=== PATIENT | female | born 1945 | race Caucasian/White ===

== ENCOUNTER → 2016-10-22 | Outpatient (CLI) | payer OTHER ==
[~2016-10-22] MED LIST: ALBU1AER9 INH; ASPI81TA25 PO; B-COTAB18 PO; CLB200 PO; CLTP PO; CRDCD300 PO; FLUO20CA37 PO; HYDC25 PO; LISI40TA PO; LORA-741 PO; METF-384 PO; MONT1TAB3 PO; MULTTAB PO; NAPR1TAB9 PO; RANI150T3 PO; ROSU5TAB PO; RXC5 PO; SYN100 PO
[2016-10-22 10:18] LABS: ESTIMATED AVERAGE GLUCOSE 148 mg/dl; HA1C FLAG Normal (Normal)
[2016-10-22 12:53] LABS: ALT/SGPT 24 U/L (12-78); BLOOD UREA NITROGEN 15 mg/dl (7-18); BUN/CREATININE RATIO 13.8 (10-20); CARBON DIOXIDE 21 mmol/L (21-32); CHLORIDE 106 mmol/L (98-107); CHOLESTEROL 106 mg/dl (0-200); GLUCOSE 133 mg/dl (70-99); POTASSIUM 4.2 mmol/L (3.5-5.1); SODIUM 138 mmol/L (136-145); TRIGLYCERIDES 120 mg/dl (0-150); VERY LOW DENSITY LIPOPROT CALC 24 mg/dl
[2016-10-22 12:56] LABS: CALCIUM 9.7 mg/dl (8.5-10.1)
[2016-10-22 13:04] LABS: ALB/GLOB RATIO 1.4 (0.9-2); ALKALINE PHOSPHATASE 112 U/L (45-117); AST/SGOT 17 U/L (15-37); CHOLESTEROL/HDL RATIO 1.9; HDL CHOLESTEROL 56 mg/dl; LDL CHOLESTEROL CALCULATED 26 mg/dl; THYROID STIMULATING HORMONE 0.567 uIu/ml (0.300-4.500)
== END | disposition home or self-care (01) ==
LOC: C.LAB1850 08:56
PROVIDERS: ATTEND Nurse Practitioner
DX: Z11.59 Encounter for screening for other viral diseases (principal); E78.5 Hyperlipidemia, unspecified; E03.9 Hypothyroidism, unspecified; E11.9 Type 2 diabetes mellitus without complications

== ENCOUNTER → 2017-03-12 | Outpatient (CLI) | payer OTHER ==
[~2017-03-12] MED LIST changes: -RXC5 PO
== END | disposition home or self-care (01) ==
LOC: C.CTS 09:15
PROVIDERS: ATTEND Orthopaedic Surgery
DX: M19.012 Primary osteoarthritis, left shoulder (principal)

== ENCOUNTER 2017-04-12 08:28 | Inpatient (IN) | payer OTHER ==
[2017-03-12 09:58] VITALS: BMI 36.0
--- NOTE | 2017-03-12 10:32 | PAT Medication Instructions ---
Service Date Mar 12, 2017. Current Home Medication List Albuterol Sulfate (Proair Hfa), 2 PUFF INH Q4 PRN Aspirin (Aspir-Low), 81 MG PO QAM B-Complex Vitamins (Vitamin B Complex), 1 TAB PO QAM Calcium/Vitamin D (Caltrate 600 Plus *), 1 TAB PO QAM Celecoxib (Celebrex *), 200 MG PO QAM Diltiazem Hcl Cd (Cardizem Cd *), 360 MG PO QAM Fluoxetine Hcl (Prozac), 20 MG PO QAM Hydrochlorothiazide (Hctz *), 25 MG PO QAM Levothyroxine (Synthroid *), 100 MCG PO QAM Lisinopril (Zestril), 40 MG PO QAM Metformin Hcl (Glucophage), 1,000 MG PO BID Montelukast Sodium (Singulair), 10 MG PO QAM Multivitamins/Minerals (Mvi With Minerals), 1 TAB PO QAM Naproxen (Aleve), 220 MG PO HS Ranitidine Hcl (Zantac), 150 MG PO DAILY PRN Rosuvastatin Calcium (Crestor), 5 MG PO HS Medication Instructions For Your Scheduled Surgery - Check with surgeon for instructions: Celecoxib (Celebrex *), 200 MG PO QAM Naproxen (Aleve), 220 MG PO HS - Hold the following medications 48 hours prior to surgery: Metformin Hcl (Glucophage), 1,000 MG PO BID - Hold the following medications the morning of surgery: Ranitidine Hcl (Zantac), 150 MG PO DAILY PRN Montelukast Sodium (Singulair), 10 MG PO QAM Multivitamins/Minerals (Mvi With Minerals), 1 TAB PO QAM Lisinopril (Zestril), 40 MG PO QAM Hydrochlorothiazide (Hctz *), 25 MG PO QAM Calcium/Vitamin D (Caltrate 600 Plus *), 1 TAB PO QAM B-Complex Vitamins (Vitamin B Complex), 1 TAB PO QAM - Take the following medications the morning of surgery with a sip of water: Levothyroxine (Synthroid *), 100 MCG PO QAM Fluoxetine Hcl (Prozac), 20 MG PO QAM Diltiazem Hcl Cd (Cardizem Cd *), 360 MG PO QAM Albuterol Sulfate (Proair Hfa), 2 PUFF INH Q4 PRN (if needed) Aspirin (Aspir-Low), 81 MG PO QAM - Take the following medications as scheduled the night before surgery: Rosuvastatin Calcium (Crestor), 5 MG PO HS Ranitidine Hcl (Zantac), 150 MG PO DAILY PRN (if needed) Albuterol Sulfate (Proair Hfa), 2 PUFF INH Q4 PRN (if needed) If you have any questions please call us at [phone] or [phone] or [phone]
[2017-03-12 10:57] LABS: BASO % 0.8 %; BASO ABS # 0.07 K/uL (0-0.2); COMPLETE YES; EOS % 2.9 %; HEMATOCRIT 38.5 % (37-47); IG% 0.4 %; LYMPH % 17.3 %; LYMPH ABS # 1.45 K/uL (1.2-3.4); MEAN CELL VOLUME 87.3 fL (80-100); MEAN CORPUSCULAR HEMOGLOBIN 29.5 pg (25-34); MEAN CORPUSCULAR HGB CONC 33.8 g/dl (32-36); MEAN PLATELET VOLUME 10.4 fL (7.4-10.4); MONO % 6.9 %; NEUT % 71.7 %; PLATELET COUNT 210 K/uL (130-400); RED BLOOD COUNT 4.41 M/uL (4.2-5.4); WHITE BLOOD COUNT 8.39 K/uL (4.8-10.8)
[2017-03-12 11:01] LABS: URINE APPEARANCE TURBID (CLEAR); URINE BILIRUBIN NEG (NEG); URINE COLOR YELLOW; URINE EPITHELIAL CELL AUTO >30 /lpf (0-5); URINE NITRITE NEG (NEG); URINE SPECIFIC GRAVITY 1.024 (1.000-1.030); UROBILINOGEN NEG (NEG)
[2017-03-12 11:02] LABS: MANUAL MICROSCOPIC REQUIRED? NO; REVIEW REQ? YES
[2017-03-12 11:04] LABS: PARTIAL THROMBOPLASTIN RATIO 0.8; PROTHROMBIN TIME (PATIENT) 10.2 SECONDS (9.0-12.0)
[2017-03-12 11:14] LABS: BUN/CREATININE RATIO 29.5 (10-20); CALCIUM 9.4 mg/dl (8.5-10.1); CREATININE 0.92 mg/dl (0.60-1.20); POTASSIUM 4.7 mmol/L (3.5-5.1)
--- NOTE | 2017-03-12 13:56 | DIAGNOSTIC IMAGING REPORT ---
CHEST 2 VIEWS ROUTINE CLINICAL HISTORY: Preoperative evaluation. COMPARISON STUDY: Chest radiograph July 28, 2010. FINDINGS: Lung volumes are at the lower limits of normal. There is no consolidation to suggest pneumonia. There is no evidence of pulmonary edema. Borderline cardiomegaly is noted. There are cholecystectomy clips. There is no evidence of pulmonary edema. IMPRESSION: 1. No acute cardiopulmonary findings. 2. Borderline cardiomegaly. Electronically signed by: Josiah Kern M.D. 03/12/2017 1:55 PM Dictated Date/Time: 03/12/2017 1:54 PM
--- NOTE | 2017-04-11 18:30 | HISTORY & PHYSICAL EXAMINATION ---
DATE OF ADMISSION: 04/12/2017 HISTORY AND PHYSICAL ADMISSION NOTE CHIEF COMPLAINT: Advanced osteoarthritis of the left shoulder. HISTORY OF PRESENT ILLNESS: Magalis is a pleasant 72-year-old female who has been dealing with a several year history of chronic left shoulder pain. X-rays and clinical examination have been diagnostic for primary osteoarthritis of the left shoulder. After failing years of conservative treatment, she elected to proceed with a left total shoulder arthroplasty. PAST MEDICAL HISTORY: Significant for hypertension, hyperlipidemia, diabetes, hypothyroidism, osteoarthritis, spinal stenosis, GERD, and obesity. PAST SURGICAL HISTORY: Significant for cholecystectomy in 1998, ORIF of the right arm in 2010, appendectomy in 2001 and ORIF of the left arm in 2012. ALLERGIES: SEASONAL. MEDICATIONS: Include metformin 500 mg 4 times a day, Cardizem 100 mg twice a day, Celebrex 200 mg daily, Crestor 5 mg daily, Singulair 10 mg daily, Prozac 20 mg daily, Synthroid 100 mcg daily, lisinopril 40 mg daily, and aspirin 81 mg daily. FAMILY HISTORY: Noncontributory. SOCIAL HISTORY: She denies any tobacco, alcohol or IV drug use. She likes to remain active. REVIEW OF SYSTEMS: She complains of left shoulder pain. All other pertinent review of systems is negative. PHYSICAL EXAMINATION: GENERAL: She is awake, alert and oriented x3. She is in no apparent distress. She is very pleasant. HEENT: Pupils equal, round and reactive to light. Extraocular motions intact. Oral mucosa is pink and moist. HEART: Regular rate per radial pulse. LUNGS: Susana symmetrically bilaterally with no audible breath sounds. ABDOMEN: Soft, nontender, nondistended. MUSCULOSKELETAL: On physical examination of her left shoulder, she has decreased range of motion with only about 110 degrees of forward flexion. She does have crepitus throughout. She has about 20 degrees of external rotation and negative belly press test. She has about 4+/5 muscle strength with full can testing, but that is mostly secondary to pain. IMAGING DATA: X-rays and CT scan of the left shoulder do show advanced osteoarthritis with significant osteophyte formation and complete joint space collapse. She also has flattening of the humeral head. IMPRESSION: Advanced osteoarthritis of the left shoulder. PLAN: Will proceed with a Biomet comprehensive left total shoulder arthroplasty. Postoperatively, she will be placed in an arm sling and kept overnight for postoperative medical management.
[2017-04-12] VITALS (8 sets, daily range): BP systolic 107–147; BP diastolic 67–87; PULSE 83–106; TEMP 36.4–36.8; O2SAT 91–98; Ht 152.4 cm; Wt 83.8 kg
[~2017-04-12] VITALS: Ht 152.4 cm; Wt 83.8 kg
[2017-04-12] MEDS: TRANEXAMIC ACID INJ 1,000 MG in SODIUM CHLORIDE 0.9% 100ML 100 ML IV SCH ×2 (06:30→12:41)
[~2017-04-12 08:28] MED LIST changes: +ACETAMINOPHEN 500 MG TAB PO SCH; +BUPIVACAINE 0.5 % 5 MG/1 ML PF 10ML VIAL ONE; +CEFAZOLIN 2000MG IV PUSH 10 ML IV SCH; +CLONIDINE HCL 100 MCG/ML SYRINGE ONE; +FAMOTIDINE 20 MG TAB PO SCH; +GABAPENTIN 300 MG CAP PO SCH; +LACTATED RINGER'S 1000ML 1,000 ML IV SCH; +LACTATED RINGER'S 1000ML IV SCH; -LORA-741 PO; +ROPIVACAINE 5MG/ML 30 ML 150 MG, BUPIVACAINE/EPINEPHR 0.5% MPF 30 ML, KETOROLAC TROMETH... INFIL SCH
--- NOTE | 2017-04-12 09:41 | History & Physical Bridge Note ---
H&P Re-Evaluation Bridge Note: I have examined the patient, reviewed the History & Physical and in the interval since the performance of the History & Physical I have noted the following changes of clinical significance: No changes noted
[2017-04-12] MEDS ORDERED: ROPIVACAINE 0.5% 5 MG/ML 30 ML VIAL ONE (09:48)
[2017-04-12] MEDS ORDERED: NURSING VERBAL MED ORDER ONE (10:00)
[2017-04-12] MEDS ORDERED: LEVOTHYROXINE 100 MCG TAB PO ONE (10:15)
[2017-04-12] MEDS ORDERED: DEXAMETHASONE SOD INJ 4 MG/ML VIAL ONE ×2 (11:01→11:09)
[2017-04-12] MEDS ORDERED: BUPIVACAINE 0.5 % 5 MG/1 ML PF 10ML VIAL ONE (11:01)
[2017-04-12] MEDS ORDERED: FENTANYL CITRATE INJ 50 MCG/1 ML 2 ML VIAL ONE (11:09)
[2017-04-12] MEDS ORDERED: PROPOFOL IV EMULSION 10 MG/ML 20 ML VIAL IV ONE (11:09)
[2017-04-12] MEDS ORDERED: ONDANSETRON INJ 2 MG/ML 2 ML VIAL ONE (11:09)
[2017-04-12] MEDS ORDERED: LIDOCAINE HCL 2% 2 ML VIAL (20MG/ML) ONE (11:09)
[2017-04-12] MEDS ORDERED: MIDAZOLAM HCL 1 MG/ML 2ML VIAL ONE ×2 (11:09→11:12)
[2017-04-12] MEDS ORDERED: ORTHO JOINT ANESTHETIC ONE (12:31)
[2017-04-12] MEDS ORDERED: BACITRACIN 50000 UNIT VIAL ONE (12:31)
[2017-04-12] MEDS ORDERED: ROCURONIUM BROMIDE 10 MG/ML 5 ML VIAL IV ONE (13:47)
[2017-04-12] MEDS ORDERED: PHENYLEPHRINE HCL INJ 10 MG/ML VIAL ONE (13:48)
[2017-04-12] MEDS ORDERED: SUCCINYLCHOLINE 100MG/5ML SYR IV ONE (14:02)
[2017-04-12] MEDS ORDERED: GLYCOPYRROLATE INJ 0.2 MG/ML VIAL ONE ×2 (14:03→14:30)
[2017-04-12] MEDS ORDERED: NEOSTIGMINE METHYLSULFATE 5 MG/5 ML SYR ONE (14:03)
[2017-04-12] MEDS ORDERED: EpHEDrine SULFATE 50MG/5ML SYR ONE (14:30)
--- NOTE | 2017-04-12 14:57 | [facility] Post Operative Brief Note ---
Immediate Operative Summary Operative Date Apr 12, 2017. Pre-Operative Diagnosis Advanced osteoarthritis of the left shoulder Post-Operative Diagnosis Advanced osteoarthritis of the left shoulder Procedure(s) Performed Left reverse total shoulder arthroplasty Surgeon Dr. Mike Reece Roller Setter Surgeon(s) Kaleb Beach PA-C Estimated Blood Loss 150cc Findings as above Specimens A. Left humeral head Complication(s) None Disposition Recovery Room / PACU
[2017-04-12] MEDS ORDERED: SOD PHOSPHATE/SOD BIPHOSPHATE ENEMA 132 ML BTL PR PRN (15:00)
[2017-04-12] MEDS ORDERED: NALOXONE HCL 0.4 MG/1 ML VIAL/CARP IV PRN ×2 (15:00→15:15)
[2017-04-12] MEDS ORDERED: OXYCODONE HCL IR 5 MG TAB (IMMEDIATE RELEASE) PO PRN (15:00)
[2017-04-12] MEDS ORDERED: METOCLOPRAMIDE HCL INJ 5 MG/ML 2 ML VIAL IV PRN (15:00)
[2017-04-12] MEDS ORDERED: BISACODYL 10 MG SUPP PR PRN (15:00)
[2017-04-12] MEDS ORDERED: ONDANSETRON INJ 2 MG/ML 2 ML VIAL IV PRN ×2 (15:00→15:15)
[2017-04-12] MEDS ORDERED: MoRPHine SULFATE 2 MG/ML CARP IV PRN (15:00)
[2017-04-12] MEDS ORDERED: MAGNESIUM HYDROXIDE SUSP 30 ML UDC PO PRN (15:00)
[2017-04-12] MEDS ORDERED: ATROPINE SULFATE 0.1 MG/ML 5ML SYR IV PRN (15:15)
[2017-04-12] MEDS ORDERED: LABETALOL HCL IV 5 MG/ML 20ML IV PRN (15:15)
[2017-04-12] MEDS ORDERED: PROMETHAZINE HCL INJ 12.5 MG in SODIUM CHLORIDE 0.9% 50ML 50 ML IV PRN (15:15)
[2017-04-12] MEDS ORDERED: EpHEDrine SULFATE INJ 50 MG/ML AMP IV PRN (15:15)
[2017-04-12] MEDS ORDERED: FLUMAZENIL 0.1 MG/1 ML 10 ML VIAL IV PRN (15:15)
--- NOTE | 2017-04-12 15:33 | OPERATIVE REPORT ---
DATE OF OPERATION: 04/12/2017 PREOPERATIVE DIAGNOSIS: Severe osteoarthritis of the left shoulder. POSTOPERATIVE DIAGNOSIS: Same. PROCEDURE: Reverse left shoulder arthroplasty. SURGEON: Dr. Mike Reece. FINANCIAL COUNSELOR: Fredis Beach PA-C, whose assistance was necessary for positioning the arm and helping with instrumentation and retraction. ANESTHESIA: General with a left interscalene nerve block. COMPLICATIONS: None. CONDITION: Stable to PACU. IMPLANTS USED: I used a Biomet comprehensive reverse left shoulder arthroplasty system with a size 9 pressfit mini stem, a 25-mm mini baseplate, a 36-mm standard eccentric glenosphere and a standard humeral tray and bearing. No cement was used during the case. INDICATIONS: Magalis is a pleasant 72-year-old female who presented to my office with a 10-year history of severe arthritis of the left shoulder. She has not raised her arm above 90 degrees in 10 years. It hurts her constantly. She had very limited external rotation. X-rays showed severe arthritis in the shoulder with flattened humeral head. After failing conservative treatment, she elected to proceed with arthroplasty. DESCRIPTION OF PROCEDURE: On 04/12/2017, she arrived at [facility] for the above procedure. She was seen in the preoperative holding area and the operative extremity was identified and signed. She was given preoperative antibiotic and a left interscalene nerve block. She was taken back to the operating room, laid on the table in supine position and put under general anesthesia. She was then put into the beachchair position. The left shoulder was prepped and draped in sterile fashion. Time-out was done and the patient and operative extremity was properly identified. A deltopectoral approach was utilized. Dissection was taken down through the fascia and the anterior shoulder was exposed. The long head of the biceps tendon was tenodesed to the upper border of the pec major. The subscapularis was tenotomized off the lesser tuberosity with a centimeter of cuff tissue remaining. The supraspinatus was intact, but there was some partial tearing and the overall tissue did not appear to be good quality. Given her history and given her obesity and her age, I felt she would be better suited for stable reverse shoulder arthroplasty. The remainder of the supraspinatus was released. The proximal humerus was exposed. Sequential reaming up to a size 9 reamer was done. Off the final reamer, a proximal humeral resection guide was placed and the proximal humerus was resected at 135 degrees of inclination and 20 degrees of retroversion. Osteophytes were removed from the inferior aspect of the humerus. The glenoid was then exposed. Time was spent in doing a complete circumferential capsular and labral release. The Biomet signature guide was then snapped on to the anterior aspect of the glenoid and a guidepin was placed in the reverse total shoulder arthroplasty hole. A 25-mm mini base plate was then reamed and the final baseplate was then impacted into place. A 25-mm central screw was placed and got an excellent purchase. Superior and inferior locking screws were then placed. A 36-mm eccentric standard glenosphere was then impacted into place. The proximal humerus was then exposed. Sequential broaching up to a size 9 broach was done. A standard humeral tray was trialed. The shoulder was reduced, brought through a full range of motion and felt to be stable. The stem was removed. The final size 9 mini implant was then impacted into place. The standard humeral tray and bearing were snapped together and the ring lock mechanism was engaged. The humeral tray was then impacted onto the humeral stem. The shoulder was reduced, brought through a full range of motion and felt to be stable. The subscapularis was then tenodesed back to the lesser tuberosity with transosseous FiberWire sutures and [id number] sutures. The surrounding soft tissues were injected with 100 mL of an orthopedic pain control cocktail. The shoulder was then irrigated with 3 liters of normal saline solution with bacitracin. The axillary nerve was palpated. A drain was placed. Skin was closed with 2-0 Vicryl, 3-0 V-Loc suture and neda. She was then placed in a soft dressing and a regular arm sling. She was then extubated, transferred to a [facility] and taken to the postanesthesia care unit in stable condition. She tolerated the procedure well. I attest to the content of the Intraoperative Record and any orders documented therein. Any exception s are noted below.
--- NOTE | 2017-04-12 16:00 | Anesthesiology Progress Note ---
Anesthesia Post Op Note Date & Time Apr 12, 2017 at 16:00 Vital Signs Pain Intensity: 0 Vital Signs Past 12 Hours Date Time Temp Pulse Resp B/P (MAP) Pulse Ox O2 Delivery O2 Flow Rate FiO2 04/12/17 15:49 86 14 97 04/12/17 15:49 85 14 04/12/17 15:46 100/54 04/12/17 15:44 86 15 04/12/17 15:44 85 15 96 04/12/17 15:41 104/54 04/12/17 15:39 89 14 97 04/12/17 15:39 88 14 04/12/17 15:36 104/57 04/12/17 15:34 86 15 04/12/17 15:34 85 15 97 04/12/17 15:31 101/50 04/12/17 15:29 87 14 04/12/17 15:29 87 14 97 04/12/17 15:26 99/57 04/12/17 15:26 36.7 88 16 99/57 (62) 98 Nasal Cannula 2 04/12/17 15:24 89 17 04/12/17 15:24 89 17 97 04/12/17 15:21 98/50 04/12/17 15:19 88 16 04/12/17 15:19 88 16 99 04/12/17 15:18 89 16 99 04/12/17 15:18 89 16 04/12/17 15:16 136/68 04/12/17 15:13 89 16 04/12/17 15:13 88 16 99 04/12/17 15:12 89 16 98 04/12/17 15:12 88 16 04/12/17 15:11 104/73 04/12/17 15:07 90 14 04/12/17 15:07 90 14 99 04/12/17 15:06 115/66 04/12/17 15:03 107/84 04/12/17 15:02 92 19 98 04/12/17 15:02 91 19 04/12/17 14:58 162/107 04/12/17 14:57 36.2 89 16 107/84 98 Oxymask 10 04/12/17 08:57 36.4 88 18 147/87 97 Room Air Notes Mental Status: alert / awake / arousable, participated in evaluation Pt Amnestic to Procedure: Yes Nausea / Vomiting: adequately controlled Pain: adequately controlled Airway Patency, RR, SpO2: stable & adequate BP & HR: stable & adequate Hydration State: stable & adequate Anesthetic Complications: no major complications apparent
--- NOTE | 2017-04-12 16:01 | DIAGNOSTIC IMAGING REPORT ---
L SHOULDER MIN 2 VIEWS ROUTINE CLINICAL HISTORY: Postop examination COMPARISON: None. DISCUSSION: There are postsurgical changes of a reverse total left shoulder arthroplasty. There is no dislocation. No acute fractures are visualized. Overlying skin neda and surgical drains are evident. IMPRESSION: Postsurgical changes of a reverse total left shoulder arthroplasty Electronically signed by: Shmuel Frederick M.D. 04/12/2017 4:00 PM Dictated Date/Time: 04/12/2017 3:59 PM
[2017-04-12] MEDS: KETOROLAC TROMETHAMINE 15 MG/ML VIAL IV. SCH (18:01)
[2017-04-12] MEDS: POTASSIUM CHLORIDE INJ 10 MEQ in SODIUM CHLORIDE 0.9% 1000ML 1,000 ML IV SCH (18:01)
[2017-04-12] MEDS: METFORMIN HCL 500 MG TAB PO SCH (18:58)
[2017-04-12] MEDS ORDERED: ROSUVASTATIN CALCIUM 5 MG TAB PO SCH (21:00)
[2017-04-12] MEDS ORDERED: SENNA 8.6 MG TAB PO SCH (21:00)
[2017-04-12] MEDS: DOCUSATE SODIUM 100 MG CAP PO SCH (21:01)
[2017-04-12] MEDS ORDERED: CEFAZOLIN IV 2,000 MG in SYRINGE 0 ML IV SCH (22:00)
[2017-04-12] MEDS: CEFAZOLIN IV 2,000 MG in SYRINGE 0 ML IV SCH (22:14)
[2017-04-12] MEDS: ACETAMINOPHEN IV 1,000 MG in EMPTY BAG 0 ML IV SCH (22:14)
--- NOTE | 2017-04-12 22:49 | Discharge Instructions ---
Discharge Instructions Date of Service Apr 12, 2017. Admission Reason for Admission: Left Shoulder Osteoarthritis Discharge Discharge Diagnosis / Problem: Reverse total shoulder Discharge Goals Goal(s): Decrease discomfort, Improve function Activity Recommendations Activity Limitations: as noted below . Instructions / Follow-Up Instructions / Follow-Up Activity and Therapy Recommendations: * Wear your sling for 3 weeks, unless otherwise instructed. You may remove your sling to shower and to dress, but otherwise, you should be in your sling at all times, including while sleeping * The shoulder replacement is very stable and you can use your hand while in the sling * Physical Therapy should start about 3-5 days from your day of surgery. Therapy will last about 8-12 weeks * You were shown a series of exercises in the hospital. Do these exercises daily including the exercises you were shown in physical therapy. Medications: * Narcotic You will likely be sent home from the hospital with a prescription for the narcotic pain medication that worked best throughout your stay. * Other medications may be prescribed for specific circumstances. If you have any questions, please call the office at . * Resume previous home medications unless otherwise instructed Showering: You may shower 5 days from the day of surgery. Let the soapy shower water run over the neda. Do not scrub or soak the incision. Things To Watch For: * Drainage from the incision site that occurs more than one week after your surgery. * Increased redness at the incision site. * Fever above 102 degrees Fahrenheit. * Unusual chest pain or shortness of breath. * Call [facility] at with any of the above problems Follow-Up Visit: Follow-up with Dr. Reece 2-3 weeks after your day of surgery. An appointment was probably scheduled when you signed-up for surgery in the office. If you have any questions call Office Instructions: More detailed instructions as well as Frequently Asked Questions were provided in a folder by our office when you signed-up for surgery. Please review these instructions when you get home. If you have any further questions or concerns, please feel free to call the office at [phone] Current Hospital Diet Patient's current hospital diet: Diabetes Type 2 Diet Discharge Diet Recommended Diet: Diabetes Type 2 Diet Procedures Procedures Performed: Left reverse total shoulder arthroplasty Pending Studies Studies pending at discharge: no Medical Emergencies . Who to Call and When: Medical Emergencies: If at any time you feel your situation is an emergency, please call 911 immediately. . Non-Emergent Contact Non-Emergency issues call your: Surgeon Call Non-Emergent contact if: wound has increased drainage, wound has increased redness . "Provider Documentation" section prepared by Mike Reece. . VTE Core Measure Inpt VTE Proph given/why not?: Treatment not indicated
[2017-04-13] MEDS: KETOROLAC TROMETHAMINE 15 MG/ML VIAL IV. SCH ×2 (00:32→06:20)
[2017-04-13 03:29] VITALS: BP 113/71; PULSE 104; TEMP 36.8; O2SAT 93
[2017-04-13] MEDS: POTASSIUM CHLORIDE INJ 10 MEQ in SODIUM CHLORIDE 0.9% 1000ML 1,000 ML IV SCH (03:51)
[2017-04-13] MEDS ORDERED: LEVOTHYROXINE 100 MCG TAB PO SCH (06:00)
[2017-04-13] MEDS: ACETAMINOPHEN IV 1,000 MG in EMPTY BAG 0 ML IV SCH (06:20)
[2017-04-13] MEDS: CEFAZOLIN IV 2,000 MG in SYRINGE 0 ML IV SCH (06:20)
[2017-04-13 06:25] LABS: HEMATOCRIT 31.5 % (37-47); MEAN CELL VOLUME 86.5 fL (80-100); MEAN CORPUSCULAR HEMOGLOBIN 29.1 pg (25-34); MEAN CORPUSCULAR HGB CONC 33.7 g/dl (32-36); MEAN PLATELET VOLUME 9.8 fL (7.4-10.4); PLATELET COUNT 196 K/uL (130-400); RED BLOOD COUNT 3.64 M/uL (4.2-5.4); WHITE BLOOD COUNT 14.68 K/uL (4.8-10.8)
[2017-04-13 06:53] VITALS: BP 110/62; PULSE 104; TEMP 36.6; O2SAT 94
[2017-04-13 06:57] LABS: BUN/CREATININE RATIO 21.3 (10-20); CALCIUM 8.8 mg/dl (8.5-10.1); CREATININE 1.12 mg/dl (0.60-1.20)
[2017-04-13] MEDS: METFORMIN HCL 500 MG TAB PO SCH (08:22)
[2017-04-13] MEDS: DOCUSATE SODIUM 100 MG CAP PO SCH (08:23)
[2017-04-13] MEDS ORDERED: PANTOprazole SOD 40 MG TAB PO SCH (09:00)
[2017-04-13] MEDS ORDERED: FLUOXETINE HCL 20 MG CAP PO SCH (09:00)
[2017-04-13] MEDS ORDERED: LISINOPRIL 40 MG TAB PO SCH (09:00)
[2017-04-13] MEDS ORDERED: MULTIVITAMIN TAB PO SCH (09:00)
[2017-04-13] MEDS ORDERED: HYDROCHLOROTHIAZIDE 25 MG TAB PO SCH (09:00)
[2017-04-13] MEDS ORDERED: DILTIAZEM HCL 180 MG CAPCR PO SCH (09:00)
[2017-04-13] MEDS ORDERED: ASPIRIN 81 MG ECTAB PO SCH (09:00)
[2017-04-13] MEDS ORDERED: MONTELUKAST SOD 10 MG TAB PO SCH (09:00)
[2017-04-13] MEDS ORDERED: CALCIUM 600MG + VIT D 400 IU TAB PO SCH (09:00)
[2017-04-13] MEDS ORDERED: CEROVITE ADV FORMULA TAB PO SCH (09:00)
[2017-04-13] MEDS ORDERED: RXC5 PO (09:09)
--- NOTE | 2017-04-13 09:37 | DISCHARGE SUMMARY ---
DISCHARGE DIAGNOSIS: Severe osteoarthritis of the left shoulder. PROCEDURE: Left reverse shoulder arthroplasty on 04/12/[address] Mike Reece. DISCHARGE INSTRUCTIONS: 1. Left arm sling for 3 weeks. 2. Oxycodone 5-10 mg every 4 hours as needed for pain. 3. Aspirin 81 mg daily. 4. Celebrex 200 mg daily. 5. Cardizem 360 mg daily. 6. Prozac 20 mg daily. 7. HCTZ 25 mg daily. 8. Synthroid 100 mcg daily. 9. Zestril 40 mg daily. 10. Glucophage 1000 mg twice a day. 11. Singulair 10 mg daily. 12. Crestor 5 mg at night. 13. Continue all [id number] medication. HOSPITAL COURSE: Magalis is a 72-year-old female who presented to my office with several year history of left shoulder pain and limited motion. X-rays and clinical examination were diagnostic for severe osteoarthritis of the left shoulder. After failing conservative treatment, she elected to undergo reverse shoulder arthroplasty. On 04/12/2017 she arrived at [facility] and underwent a left reverse shoulder replacement without complications. She had a general anesthetic and a left interscalene nerve block. Postoperatively, she was put in an arm sling and discharged to the general orthopedic floor. Her hospital course was uneventful. Postop day #1, her H&H was stable at 10.6 and 31.5. She was not having much pain in the shoulder. She was seen by physical therapy, did hand, wrist, elbow and pendulum exercises. The nursing staff changed the dressing, pulled the drain and discharged her to home with the above instructions.
--- NOTE | 2017-04-13 09:38 | PROGRESS NOTE ---
DATE: 04/13/2017 CHIEF COMPLAINT: Status post reverse left shoulder arthroplasty, postop day #1. PROGRESS: Magalis was examined at bedside today. Overall, she is doing very well. She has a little to no pain in her left shoulder. She had no acute events overnight and has no complaints. PHYSICAL EXAMINATION: LEFT SHOULDER: The dressing is clean and dry and the drain is to suction. She is wearing a sling as instructed. Her radial, median and ulnar nerves were all checked and intact at her wrist. Her axillary nerve was not checked yet. LABORATORY DATA: She has an H&H today of 10.6 and 31.5. Her glucose is a little high at 177. Her vital signs are all stable on room air. She is a little tachycardic. She is voiding well on her own. X-rays postoperatively of the left shoulder showed the prosthesis to be in anatomical alignment without any evidence of fracture, dislocation or loosening. IMPRESSION: Status post left reverse shoulder arthroplasty, postop day #1. PLAN: At this point, she is doing well and happy with her progress. She does not have much pain in the shoulder. She will be seen by physical therapy today for hand, wrist, elbow and pendulum exercises. The nursing staff can change the dressing, pull the drain and discharge her home later this morning.
[2017-04-13 11:00] VITALS: BP 110/62; PULSE 104; TEMP 36.6; O2SAT 94
[2017-04-14] MEDS ORDERED: ACETAMINOPHEN 500 MG TAB PO SCH (06:00)
== END 2017-04-13 12:25 | disposition home or self-care (01) | DRG 483 ==
LOC: C.ACU 08:28 → ENRESERV 15:25 → C.3E 16:54
PROVIDERS: ADMIT Orthopaedic Surgery; ATTEND Orthopaedic Surgery
PROC: 0RRK0J6 Replacement of Left Shoulder Joint with Synthetic Substitute, Humeral Surface, Open Approach (ICD-10-PCS; principal; 2017-04-12 11:15)
DX: M19.012 Primary osteoarthritis, left shoulder (principal); I10 Essential (primary) hypertension; E78.5 Hyperlipidemia, unspecified; E11.9 Type 2 diabetes mellitus without complications; E03.9 Hypothyroidism, unspecified; K21.9 Gastro-esophageal reflux disease without esophagitis; E66.9 Obesity, unspecified; Z90.49 Acquired absence of other specified parts of digestive tract; Z79.82 Long term (current) use of aspirin; Z68.36 Body mass index [BMI] 36.0-36.9, adult

== ENCOUNTER → 2017-05-21 | Outpatient (CLI) | payer OTHER ==
[~2017-05-21] MED LIST changes: -ACETAMINOPHEN 500 MG TAB PO SCH; -ALBU1AER9 INH; -BUPIVACAINE 0.5 % 5 MG/1 ML PF 10ML VIAL ONE; -CEFAZOLIN 2000MG IV PUSH 10 ML IV SCH; -CLONIDINE HCL 100 MCG/ML SYRINGE ONE; -FAMOTIDINE 20 MG TAB PO SCH; -GABAPENTIN 300 MG CAP PO SCH; -LACTATED RINGER'S 1000ML 1,000 ML IV SCH; -LACTATED RINGER'S 1000ML IV SCH; -ROPIVACAINE 5MG/ML 30 ML 150 MG, BUPIVACAINE/EPINEPHR 0.5% MPF 30 ML, KETOROLAC TROMETH... INFIL SCH; +RXC5 PO
[2017-05-21 13:03] LABS: ALT/SGPT 23 U/L (12-78); BLOOD UREA NITROGEN 28 mg/dl (7-18); BUN/CREATININE RATIO 27.2 (10-20); CALCIUM 9.2 mg/dl (8.5-10.1); CARBON DIOXIDE 20 mmol/L (21-32); CHLORIDE 106 mmol/L (98-107); CHOLESTEROL 114 mg/dl (0-200); CREATININE 1.01 mg/dl (0.60-1.20); GLUCOSE 128 mg/dl (70-99); POTASSIUM 4.8 mmol/L (3.5-5.1); SODIUM 138 mmol/L (136-145); TRIGLYCERIDES 116 mg/dl (0-150); VERY LOW DENSITY LIPOPROT CALC 23 mg/dl
[2017-05-21 13:13] LABS: ALKALINE PHOSPHATASE 129 U/L (45-117); AST/SGOT 13 U/L (15-37); CHOLESTEROL/HDL RATIO 1.8; HDL CHOLESTEROL 63 mg/dl; LDL CHOLESTEROL CALCULATED 28 mg/dl
[2017-05-21 13:39] LABS: ESTIMATED AVERAGE GLUCOSE 137 mg/dl; HA1C FLAG Normal (Normal)
== END | disposition home or self-care (01) ==
LOC: C.LAB1850 09:57
PROVIDERS: ATTEND Internal Medicine
DX: E78.5 Hyperlipidemia, unspecified (principal); E03.9 Hypothyroidism, unspecified; E11.9 Type 2 diabetes mellitus without complications

== ENCOUNTER → 2017-11-04 | Outpatient (CLI) | payer OTHER ==
[~2017-11-04] MED LIST changes: -B-COTAB18 PO; +CALC500C70 PO; +CLB/200 PO; -CLB200 PO; -CLTP PO; -CRDCD300 PO; +DILT-119 PO; -HYDC25 PO; +HYDR25TA4 PO; +LEVO100T7 PO; -RXC5 PO; -SYN100 PO
[2017-11-04 10:47] LABS: BLOOD UREA NITROGEN 19 mg/dl (7-18); CALCIUM 9.1 mg/dl (8.5-10.1); CARBON DIOXIDE 23 mmol/L (21-32); CREATININE 1.02 mg/dl (0.60-1.20); GLUCOSE 141 mg/dl (70-99); POTASSIUM 4.5 mmol/L (3.5-5.1); SODIUM 139 mmol/L (136-145)
[2017-11-04 10:48] LABS: CREATININE RANDOM URINE 54.8 mg/dl
== END | disposition home or self-care (01) ==
LOC: C.LAB1850 09:09
PROVIDERS: ATTEND Internal Medicine
DX: E11.9 Type 2 diabetes mellitus without complications (principal); E03.9 Hypothyroidism, unspecified